=== PATIENT | female | born 1965 | race Caucasian/White ===

== ENCOUNTER → 2020-06-24 | Outpatient (CLI) | payer OTHER ==
--- NOTE | 2020-06-26 09:07 | RAD ---
EXAM: Bilateral screening mammogram. HISTORY: 55-year-old female presents for screening mammography. TECHNIQUE: Full-field digital craniocaudal and mediolateral oblique views of both breasts are obtained for evaluation. Computer aided detection with SpectropathD software version 9.3 was applied. COMPARISON: Level A - Mostly fat BREAST PARENCHYMAL DENSITY: 02/27/2019. FINDINGS: There is no new suspicious mass, microcalcification or region of architectural distortion. IMPRESSION: BI-RADS Category 2: Benign finding(s). RECOMMENDATION: Annual mammography is recommended. If your mammogram demonstrates that you have dense breast tissue, which could hide abnormalities, and if you have other risk factors for breast cancer that have been identified, you might benefit from supplemental screening tests that may be suggested by your ordering physician. Dense breast tissue, in and of itself, is a relatively common condition. This information is not provided to cause undue concern, but rather to raise your awareness and to promote discussion with your physician regarding the presence of other risk factors, in addition to dense breast tissue. A report of your mammography results will be sent to you and your physician. You should contact your physician if you have any questions or concerns regarding this report. Mammography is a sensitive method for finding small breast cancers, but it does not detect them all and is not a substitute for careful clinical examination. A negative mammogram does not negate a clinically suspicious finding and should not result in delay in biopsying a clinically suspicious abnormality. PQRS compliance statement - Patient information was entered into a reminder system with a target due date for the next mammogram. "Our facility is accredited by the [employer] Mammography [employer]." Electronically signed by: Yuliana Oconnell MD (06/26/2020 9:04 AM) [id number]
== END ==
LOC: MAMMO 10:25
PROVIDERS: ATTEND Family Medicine
DX: Z12.31 Encounter for screening mammogram for malignant neoplasm of breast (principal)
CPT/HCPCS: 77067

== ENCOUNTER → 2022-01-05 | Outpatient (CLI) | payer OTHER ==
--- NOTE | 2022-01-05 09:20 | RAD ---
Examination: CT chest without contrast HISTORY: History of pulmonary nodules COMPARISON: None available Technique: Axial CT images of chest were performed contrast. Coronal and sagittal reformats are perfo rmed Exposure: One or more of the following individualized dose reduction techniques were utilized for thi s examination: 1. Automated exposure control 2. Adjustment of the mA and/or kV according to patient size 3. Use of iterative reconstruction technique FINDINGS: The central airways are patent. The heart size grossly appears unremarkable.Mild aortic atheroscleros is. No radiologically significant mediastinal lymphadenopathy. 7 mm nodule identified in the right lo wer lobe of the lung.Diffuse decreased attenuation noted in the liver likely hepatic steatosis. The s pleen, adrenals grossly appears unremarkable. Moderate degenerative changes thoracic spine. IMPRESSION: 1. 7 mm nodule identified in the right lower lobe of the lung. Per Fleischner Society guidelines for incidentally found multiple solid nodules measuring 6-8 mm, initial CT follow-up is recommended in 3 -6 months. Additional follow-up can be considered in 18-24 month based on risk factors. 2. Hepatic steatosis. Electronically signed by: Phuc Tadeo MD (01/05/2022 9:18 AM) [id number]
== END ==
LOC: CT 08:44
PROVIDERS: ATTEND Family Medicine
DX: R91.1 Solitary pulmonary nodule (principal); K76.0 Fatty (change of) liver, not elsewhere classified; I70.0 Atherosclerosis of aorta
CPT/HCPCS: 71250

== ENCOUNTER 2022-01-12 03:24 | Emergency (ER) | payer OTHER ==
[~2022-01-12] VITALS: Ht 160 cm; Wt 127.0 kg
--- NOTE | 2022-01-12 03:40 | PHYS DOC ---
Adult General HPI HPI Patient is a 56-year-old female who presents with bright red blood per rectum and history of diverticulitis. States she ate some [employer] earlier and started having a stomachache at about 11 and thought was a [employer]. States that about 1 AM she had bright red blood per rectum in the stool. States that this happened before when she had her diverticulitis. States she has some mild abdominal pain, around her umbilicus, 5 out of 10, sharp in nature. Denies any recent travels, traumas, illnesses, fevers, chest pain, shortness of breath. Denies any known ill contacts. States has been making urine and stool normally up until now. Review of Systems Review of Systems Review of systems otherwise unremarkable except noted in HPI Physical Exam Physical Exam Constitutional: Well developed, well nourished, no acute distress, non-toxic appearance. [] HENT: Normocephalic, atraumatic, bilateral external ears normal, oropharynx moist, no oral exudates, nose normal. [] Eyes: conjunctiva normal, no discharge. [] Neck: Normal range of motion, no tenderness, supple, no stridor. [] Cardiovascular:Heart rate regular rhythm, no murmur [] Lungs & Thorax: Bilateral breath sounds clear to auscultation [] Abdomen: soft, no tenderness, no masses, no pulsatile masses. Rectal exam: [] Skin: Warm, dry, no erythema, no rash. [] Back: No tenderness, no CVA tenderness. [] Extremities: No tenderness, no cyanosis, no clubbing, ROM intact, no edema. [] Neurologic: Alert and oriented X 3, normal motor function, normal sensory function, no focal deficits noted. [] Psychologic: Affect normal, judgement normal, mood normal. [] EKG EKG [] Radiology/Procedures Radiology/Procedures [] Heart Score C/O Chest Pain: No Risk Factors: Risk Factors: DM, Current or recent (<one month) smoker, HTN, HLP, family history of CAD, obesity. Risk Scores: Risk Factors: DM, Current or recent (<one month) smoker, HTN, HLP, family history of CAD, obesity. Course & Med Decision Making Course & Med Decision Making Patient is a 56-year-old female who presents with bright red blood per rectum Vital signs notable for mild hypertension. Physical exam noted above. Patient with no pain, no nausea or vomiting but does have some anxiety and requested an Ativan. Given an Ativan orally. Laboratory analysis not concerning. CT not concerning. Rectal exam with no blood. Occult negative. Patient remained asymptomatic. Discussed all findings with patient. Stated she was feeling better and would prefer to go on home and call her primary care physician in the morning Advised to call primary care and set up a follow-up for soon as possible and gave strict return precautions to the ED. Patient grateful, verbalized understanding and agreed with plan of discharge. [] Dragon Disclaimer Dragon Disclaimer This electronic medical record was generated, in whole or in part, using a voice recognition dictation system. Departure Departure: Impression: Primary Impression: Hemorrhoids Additional Impression: Bright red blood per rectum Disposition: HOME / SELF CARE / HOMELESS Condition: STABLE Referrals: DAYLIN ANAND (PCP) Patient Instructions: Hemorrhoids Additional Instructions: Thank you for coming into the emergency department tonight and allowing us to take care of you. Please read the attached information carefully to go over things we discussed. You can use warm sitz bath, Anusol suppositories at home for treatment of your hemorrhoids. Please also use a stool softener and drink plenty of fluids to prevent constipation and straining. Please follow-up in the morning with your primary care physician update on your ED visit and set up a follow-up as soon as she can. Please come back with new or concerning symptoms as we discussed. Problem Qualifiers MARYLOU SULLIVAN MD January 12, 2022 03:40
[2022-01-12 05:21] LABS: BASO % 0 % (0-3); EOS # 0.1 x10^3/uL (0.0-0.7); EOS % 0 % (0-3); HEMATOCRIT 44.5 % (36.0-47.0); HEMOGLOBIN 14.8 g/dL (12.0-15.5); LYMPH # 1.8 x10^3/uL (1.0-4.8); LYMPH % 14 % (24-48); MEAN CORPUSCULAR HEMOGLOBIN 30 pg (25-35); MEAN CORPUSCULAR HGB CONC 33 g/dL (31-37); MEAN CORPUSCULAR VOLUME 90 fL (79-100); MONO # 0.5 x10^3/uL (0.0-1.1); MONO % 4 % (0-9); NEUT # 9.9 x10^3uL (1.8-7.7); NEUT % 81 % (31-73); PLATELET COUNT 283 x10^3/uL (140-400); RED BLOOD COUNT 4.93 x10^6/uL (3.50-5.40); RED CELL DISTRIBUTION WIDTH 14.1 % (11.5-14.5); WHITE BLOOD COUNT 12.2 x10^3/uL (4.0-11.0)
--- NOTE | 2022-01-12 05:23 | RAD ---
Abdominal and Pelvis CT, Without Contrast: History: Reason: ab pain, BRBPR, H/O diverticulitis / Spl. Instructions: Pt refuses IV contrast as s tates in Stage 3 kidney failure / History: Comparison: None. Procedure: Axial images are obtained of the abdomen and pelvis, without IV or oral contrast. Oral Contrast: No Findings: Evaluation of solid organs is limited without contrast. The gallbladder was used tiny stones or gravel but no wall thickening or surrounding inflammation. The appendix appears normal. The colon is collapsed limiting its evaluation. Liver: Normal. Spleen: Normal. Pancreas: Normal. Adrenal Glands: Normal. Kidneys: There is a 1.8 cm mass arising laterally from the mid left kidney. There is no free air or free fluid. There is no lymphadenopathy. The urinary bladder appears normal. There is no pericolonic inflammation identified. Impression: 1. 1.8 cm mass in the mid left kidney. This could be an small renal cell carcinoma or complex hemorrh agic cyst. Consider a 6 month follow-up ultrasound. 2. Cholelithiasis without evidence of acute cholecystitis. End impression PQRS Compliance Statement: One or more of the following individualized dose reduction techniques were utilized for this examinat ion: 1. Automated exposure control 2. Adjustment of the mA and/or kV according to patient size 3. Use of iterative reconstruction technique Electronically signed by: Todd Kolb III, MD (01/12/2022 5:20 AM) [facility]
[2022-01-12 05:46] LABS: CALCIUM 10.4 mg/dL (8.5-10.1); CREATININE 1.2 mg/dL (0.6-1.0); GFR 46.1; POTASSIUM 3.7 mmol/L (3.5-5.1)
[2022-01-12 05:50] VITALS: BP 159/89
[2022-01-12] MEDS ORDERED: LORazepam 1 MG TABLET PO ONE (06:00)
[2022-01-12] MEDS ORDERED: IOHEXOL 300 MG/ML 75 ML VIAL. IV ONE (07:00)
[2022-01-12] MEDS ORDERED: CONTRAST GIVEN. MC PRN (07:00)
== END 2022-01-12 06:40 | disposition home or self-care (01) ==
LOC: ER 03:24
DX: K64.9 Unspecified hemorrhoids (principal)
CPT/HCPCS: 36415; 74176; 80048; 85025; 85610; 85730; 99284